=== PATIENT | male | born 1960 | race Caucasian/White ===

== ENCOUNTER 2022-10-19 11:00 | Inpatient (IN) | payer MEDICAID ==
[~2022-10-19] VITALS: Ht 177.8 cm; Wt 77.2 kg
[2022-12-10] MEDS ORDERED: LISI-894 PO (14:04)
[2022-12-10] MEDS ORDERED: NIFE-141 PO (14:04)
[2022-12-10] MEDS ORDERED: SERT-162 PO (14:04)
[2022-12-10] MEDS ORDERED: TAMS-13 PO (14:04)
[2022-12-10] MEDS ORDERED: GABA-1181 PO (14:04)
[2022-12-10] MEDS ORDERED: METO50 PO (14:04)
[2022-12-13] MEDS ORDERED: RINGERS SOLUTION,LACTATED 1,000 ML IV ONE ×4 (05:30→10:31)
[2022-12-13] MEDS ORDERED: CeFAZolin 2 GM/DEXTROSE 50 ML IV ONE ×2 (06:44→07:00)
[2022-12-13] MEDS ORDERED: ETHYL ALCOHOL 62% ANTISEPTIC NASAL SANITIZER 0.6 ML AMPUL NASAL ONE (07:00)
[2022-12-13] MEDS ORDERED: PHENYLEPHRINE 200 MG/D5%-WATER 250 ML IV PRN (08:15)
[2022-12-13] MEDS ORDERED: BUPIVACAINE HCL/PF 0.5% 30 ML VIAL ONE (08:24)
[2022-12-13] MEDS ORDERED: VANCOMYCIN HCL 1 GM/VIAL ONE ×2 (08:24)
[2022-12-13] MEDS ORDERED: BUPIVACAINE LIPOSOME/PF 1.3%-13.3MG/ML SUSPENSION 20 ML VIAL INJ ONE ×2 (08:30→12:16)
[2022-12-13 08:44] LABS: ABG BASE EXCESS -3.1 mmol/L (-2.0-3.0); ABG HCO3 22.2 mmol/L (22.0-26.0); ABG METHEMOGLOBIN 0.3 % (0.0-1.5); ABG OXYGEN CONTENT 15.7 mL/dL (15.0-23.0); ABG OXYGEN SATURATION 94.6 % (95.0-98.0); ABG OXYHEMOGLOBIN 88.6 % (94.0-100.0); ABG PCO2 37 mmHg (35-45); ABG PH 7.389 (7.35-7.450); ABG TOTAL HEMOGLOBIN 12.6 G/dL (12.0-18.0); PO2, ARTERIAL BG 71.1 mmHg (79.0-87.0); SOURCE, BLOOD GAS ARTERIAL; TEMPERATURE, FAHRENHEIT, BG 98.6 FAHREN (96.0-98.6)
[2022-12-13 08:45] LABS: ABG A-A DIFF O2 34.3 mmHg (10-20.0); O2 DEVICE,BLOOD GAS ROOM AIR (ROOM AIR); SITE, BLOOD GAS ARTERIAL LINE
[2022-12-13] MEDS ORDERED: HEPARIN SODIUM,PORCINE 5,000 UNITS/ML VIAL ONE (09:07)
[2022-12-13] MEDS ORDERED: BUPIVACAINE 0.25%/EPI 1:200,000/PF 10 ML VIAL ONE (09:53)
[2022-12-13] MEDS ORDERED: ACETAMINOPHEN 1000 MG/ISO-OSM 100 ML IV ONE (10:49)
[2022-12-13] MEDS ORDERED: ALBUTEROL SULFATE 2.5 MG/0.5 ML NEB SOLUTION NEB ONE ×2 (11:00→15:06)
[2022-12-13] MEDS ORDERED: GELATIN SPONGE,ABSORBABLE 100 MM TP ONE (11:46)
[2022-12-13] MEDS ORDERED: THROMBIN, BOVINE 20000 UNITS/VIAL POWDER TP ONE (11:47)
[2022-12-13] MEDS ORDERED: VANCOMYCIN HCL 1 GM/VIAL TP ONE (12:16)
[2022-12-13] MEDS ORDERED: RINGERS SOLUTION,LACTATED 2,000 ML IV ONE (13:45)
[2022-12-13] MEDS ORDERED: ONDANSETRON HCL 4 MG/2 ML VIAL IVP PRN (15:30)
[2022-12-13] MEDS ORDERED: ACETAMINOPHEN 325 MG TABLET PO PRN (15:30)
[2022-12-13] MEDS ORDERED: FentaNYL CITRATE PF 100 MCG/2 ML VIAL ONE (15:35)
[2022-12-13] MEDS: FentaNYL CITRATE PF 100 MCG/2 ML VIAL IVP PRN ×3 (15:36→16:03)
[2022-12-13] MEDS ORDERED: HYDROmorphone HCL 2 MG/ML SYRINGE ONE (15:54)
[2022-12-13] MEDS: HYDROmorphone HCL 2 MG/ML SYRINGE IVP PRN ×4 (15:55→16:28)
[2022-12-13] MEDS ORDERED: MORPHINE SULFATE 2 MG/ML SYRINGE IVP PRN (17:15)
[2022-12-13] MEDS ORDERED: OxyCODONE HCL/ACETAMINOPHEN 5-325 MG TABLET PO PRN (17:45)
[2022-12-13] MEDS ORDERED: HYDROmorphone HCL 2 MG/ML SYRINGE IVP PRN (18:45)
[2022-12-13] MEDS: MORPHINE SULFATE 2 MG/ML SYRINGE IVP PRN ×2 (19:26→23:37)
[2022-12-13] MEDS: DOCUSATE SODIUM 100 MG CAPSULE PO SCH (20:04)
[2022-12-13] MEDS: CYCLOBENZAPRINE HCL 10 MG TABLET PO SCH (20:05)
[2022-12-13] MEDS: OXYGEN THERAPY IH SCH (20:07)
[2022-12-14] VITALS: BP 170/93
[2022-12-14 04:00] VITALS: BP 185/96
[2022-12-14] MEDS: MORPHINE SULFATE 2 MG/ML SYRINGE IVP PRN ×4 (04:47→22:23)
[2022-12-14 05:59] LABS: BASOPHILS % (AUTO) 0.1 % (0.0-2.0); EOSINOPHILS % (AUTO) 0.1 % (1.0-6.0); HEMATOCRIT 29.4 % (41-53); HEMOGLOBIN 9.7 g/dL (13.5-17.5); LYMPHOCYTES # (AUTO) 1.5 K/uL (1.0-4.8); LYMPHOCYTES % (AUTO) 12.2 % (22.0-44.0); MEAN CORPUSCULAR HEMOGLOBIN 29.7 pg (26.0-34.0); MEAN CORPUSCULAR HGB CONC 33.1 G/dL (31.0-37.0); MEAN CORPUSCULAR VOLUME 90 fL (80-100); MONOCYTES # (AUTO) 1.2 K/uL (0.1-1.0); MONOCYTES % (AUTO) 9.1 % (2.0-9.0); NEUTROPHILS % (AUTO) 78.5 % (40.0-70.0); PLATELET COUNT (AUTO) 204 K/uL (150-450); RED BLOOD CELL COUNT(AUTO) 3.28 MIL/uL (4.50-5.90); RED CELL DISTRIBUTION WIDTH 13.7 % (11.5-14.5)
[2022-12-14 06:08] LABS: ALANINE AMINOTRANSFERASE 34 U/L (12-78); ALBUMIN 2.8 g/dL (3.4-5.0); ALKALINE PHOSPHATASE 68 U/L (46-116); ANION GAP 11 mmol/L (8-16); ASPARTATE AMINOTRANSFERASE 31 U/L (15-37); BILIRUBIN,TOTAL 0.4 mg/dL (0.1-1.0); CALCIUM, TOTAL 8.3 mg/dL (8.8-10.5); CARBON DIOXIDE 24 mmol/L (22-29); CHLORIDE 107 mmol/L (98-107); GLOMERULAR FILTR. RATE CALC > 60 mL/min (>60); GLUCOSE,RANDOM 106 mg/dL (70-110); POTASSIUM 3.4 mmol/L (3.5-5.1); SODIUM SERUM 142 mmol/L (136-145); TOTAL PROTEIN, SERUM 6.1 g/dL (6.4-8.2)
[2022-12-14] MEDS ORDERED: GLYCOPYRROLATE 0.2 MG/ML VIAL IM ONE (06:40)
[2022-12-14] MEDS ORDERED: EPINEPHrine 1:1,000 [1 MG/ML] VIAL IM ONE (06:40)
[2022-12-14] MEDS ORDERED: DEXAMETHASONE SOD PHOS 4 MG/ML VIAL IVP ONE (06:40)
[2022-12-14] MEDS ORDERED: ONDANSETRON HCL 4 MG/2 ML VIAL IVP ONE (06:40)
[2022-12-14] MEDS ORDERED: LIDOCAINE/PF 2% 5 ML VIAL IM ONE (06:40)
[2022-12-14] MEDS ORDERED: MIDAZOLAM HCL 2 MG/2 ML VIAL IVP ONE (06:40)
[2022-12-14] MEDS ORDERED: PROPOFOL 1% 20 ML VIAL IVP ONE (06:40)
[2022-12-14] MEDS ORDERED: EPHEDrine SULFATE 50 MG/ML VIAL IM ONE (06:40)
[2022-12-14] MEDS ORDERED: ROCURONIUM BROMIDE 10 MG/ML 5 ML VIAL IVP ONE (06:40)
[2022-12-14] MEDS ORDERED: NEOSTIGMINE METHYLSULFATE 1 MG/ML 10 ML VIAL IVP ONE (06:40)
[2022-12-14] MEDS ORDERED: FentaNYL CITRATE PF 100 MCG/2 ML VIAL IVP ONE (06:40)
[2022-12-14] MEDS ORDERED: POTASSIUM CHL 10 MEQ/WATER 50 ML IV PRN (06:45)
[2022-12-14 08:00] VITALS: BP 170/96
[2022-12-14] MEDS: OXYGEN THERAPY IH SCH ×2 (08:46→20:00)
[2022-12-14] MEDS: CYCLOBENZAPRINE HCL 10 MG TABLET PO SCH ×3 (08:56→20:05)
[2022-12-14] MEDS: METOPROLOL TARTRATE 50 MG TABLET PO SCH (08:57)
[2022-12-14] MEDS: FAMOTIDINE 20 MG TABLET PO SCH (08:57)
[2022-12-14] MEDS: TAMSULOSIN HCL 0.4 MG CAPSULE PO SCH (08:57)
[2022-12-14] MEDS: LISINOPRIL 20 MG TABLET PO SCH (08:57)
[2022-12-14] MEDS: GABAPENTIN 300 MG CAPSULE PO SCH ×4 (08:57→20:05)
[2022-12-14] MEDS: DOCUSATE SODIUM 100 MG CAPSULE PO SCH ×2 (09:05→20:05)
[2022-12-14] MEDS: SERTRALINE HCL 100 MG TABLET PO SCH (09:59)
[2022-12-14] MEDS: NIFEdipine 30 MG ER TABLET PO SCH (09:59)
[2022-12-14 12:00] VITALS: BP 174/107
[2022-12-14] MEDS: OxyCODONE HCL/ACETAMINOPHEN 10-325 MG TABLET PO PRN (14:03)
[2022-12-14 16:00] VITALS: BP 125/68
[2022-12-14] MEDS: POTASSIUM CHLORIDE 20 MEQ ER TABLET PO PRN (19:14)
[2022-12-14 22:20] VITALS: BP 149/81
[2022-12-15] VITALS (10 sets, daily range): BP systolic 111–167; BP diastolic 76–96
[2022-12-15] MEDS: OxyCODONE HCL/ACETAMINOPHEN 10-325 MG TABLET PO PRN (04:58)
[2022-12-15 05:43] LABS: APPEARANCE,URINE CLEAR (CLEAR); BILIRUBIN,URINE NEGATIVE (NEGATIVE); GLUCOSE, URINE (UA) NEGATIVE (NEGATIVE); KETONES,URINE NEGATIVE (NEGATIVE); LEUKOCYTE ESTERASE ,URINE NEGATIVE (NEGATIVE); NITRATE,URINE NEGATIVE (NEGATIVE); OCCULT BLOOD,URINE NEGATIVE (NEGATIVE); PH,URINE 7.5 (5.0-8.0); PROTEIN,URINE NEGATIVE (NEGATIVE); SPECIFIC GRAVITIY, URINE 1.012 (1.003-1.030); UROBILINOGEN,URINE <=1.0 mg/dL (<=1.0)
[2022-12-15] MEDS: OXYGEN THERAPY IH SCH ×2 (08:07→20:00)
[2022-12-15] MEDS: MORPHINE SULFATE 2 MG/ML SYRINGE IVP PRN ×4 (08:08→23:30)
[2022-12-15 08:24] LABS: ANION GAP 10 mmol/L (8-16); CALCIUM, TOTAL 8.7 mg/dL (8.8-10.5); CARBON DIOXIDE 24 mmol/L (22-29); CHLORIDE 108 mmol/L (98-107); CREATININE 0.66 mg/dL (0.60-1.30); GLOMERULAR FILTR. RATE CALC > 60 mL/min (>60); GLUCOSE,RANDOM 96 mg/dL (70-110); POTASSIUM 3.3 mmol/L (3.5-5.1); SODIUM SERUM 142 mmol/L (136-145)
[2022-12-15] MEDS: DOCUSATE SODIUM 100 MG CAPSULE PO SCH ×3 (08:58→21:00)
[2022-12-15] MEDS: LISINOPRIL 20 MG TABLET PO SCH (08:59)
[2022-12-15] MEDS: CYCLOBENZAPRINE HCL 10 MG TABLET PO SCH ×3 (08:59→20:37)
[2022-12-15] MEDS: TAMSULOSIN HCL 0.4 MG CAPSULE PO SCH (08:59)
[2022-12-15] MEDS: GABAPENTIN 300 MG CAPSULE PO SCH ×4 (09:00→20:36)
[2022-12-15] MEDS: SERTRALINE HCL 100 MG TABLET PO SCH (09:00)
[2022-12-15] MEDS: NIFEdipine 30 MG ER TABLET PO SCH (09:00)
[2022-12-15] MEDS: METOPROLOL TARTRATE 50 MG TABLET PO SCH (09:01)
[2022-12-15] MEDS: FAMOTIDINE 20 MG TABLET PO SCH (09:03)
[2022-12-15] MEDS: POTASSIUM CHLORIDE 20 MEQ ER TABLET PO PRN (09:45)
[2022-12-15 11:28] LABS: EOSINOPHILS % (AUTO) 0.3 % (1.0-6.0); HEMOGLOBIN 10.1 g/dL (13.5-17.5); LYMPHOCYTES # (AUTO) 1.6 K/uL (1.0-4.8); LYMPHOCYTES % (AUTO) 16.4 % (22.0-44.0); MEAN CORPUSCULAR HEMOGLOBIN 30.6 pg (26.0-34.0); MEAN CORPUSCULAR HGB CONC 33.8 G/dL (31.0-37.0); MEAN CORPUSCULAR VOLUME 91 fL (80-100); MONOCYTES % (AUTO) 9.7 % (2.0-9.0); NEUTROPHILS # (AUTO) 7.3 K/uL (1.8-7.7); NEUTROPHILS % (AUTO) 72.6 % (40.0-70.0); PLATELET COUNT (AUTO) 193 K/uL (150-450); RED BLOOD CELL COUNT(AUTO) 3.31 MIL/uL (4.50-5.90); RED CELL DISTRIBUTION WIDTH 13.9 % (11.5-14.5)
[2022-12-16 03:47] VITALS: BP 139/82
[2022-12-16] MEDS: MORPHINE SULFATE 2 MG/ML SYRINGE IVP PRN ×3 (05:14→15:47)
[2022-12-16 07:29] VITALS: BP 147/78
[2022-12-16] MEDS: OXYGEN THERAPY IH SCH ×2 (08:00→20:00)
[2022-12-16] MEDS: METOPROLOL TARTRATE 50 MG TABLET PO SCH (08:20)
[2022-12-16] MEDS: FAMOTIDINE 20 MG TABLET PO SCH (08:20)
[2022-12-16] MEDS: DOCUSATE SODIUM 100 MG CAPSULE PO SCH ×2 (08:20→20:12)
[2022-12-16] MEDS: TAMSULOSIN HCL 0.4 MG CAPSULE PO SCH (08:20)
[2022-12-16] MEDS: NIFEdipine 30 MG ER TABLET PO SCH (08:20)
[2022-12-16] MEDS: SERTRALINE HCL 100 MG TABLET PO SCH (08:21)
[2022-12-16] MEDS: GABAPENTIN 300 MG CAPSULE PO SCH ×4 (08:21→20:12)
[2022-12-16] MEDS: CYCLOBENZAPRINE HCL 10 MG TABLET PO SCH ×3 (08:22→20:12)
[2022-12-16] MEDS: LISINOPRIL 20 MG TABLET PO SCH (08:22)
[2022-12-16 10:45] LABS: ANION GAP 12 mmol/L (8-16); CALCIUM, TOTAL 8.5 mg/dL (8.8-10.5); CARBON DIOXIDE 21 mmol/L (22-29); CHLORIDE 106 mmol/L (98-107); CREATININE 0.66 mg/dL (0.60-1.30); GLOMERULAR FILTR. RATE CALC > 60 mL/min (>60); GLUCOSE,RANDOM 98 mg/dL (70-110); POTASSIUM 3.4 mmol/L (3.5-5.1); SODIUM SERUM 139 mmol/L (136-145)
[2022-12-16 11:11] VITALS: BP 127/86
[2022-12-16 15:23] VITALS: BP 128/73
[2022-12-16] MEDS ORDERED: MAGNESIUM SULFATE 2 GM/WATER 50 ML IV ONE (18:00)
[2022-12-16] MEDS: POTASSIUM CHLORIDE 20 MEQ ER TABLET PO PRN (18:07)
[2022-12-16] MEDS ORDERED: SODIUM CHLORIDE 0.9% 250 ML IV ONE (18:50)
[2022-12-16] MEDS: OxyCODONE HCL/ACETAMINOPHEN 10-325 MG TABLET PO PRN (20:16)
[2022-12-16 20:18] VITALS: BP 109/67
[2022-12-17] MEDS: MORPHINE SULFATE 2 MG/ML SYRINGE IVP PRN ×2 (00:04→11:02)
[2022-12-17 00:11] VITALS: BP 104/58
[2022-12-17 04:30] VITALS: BP 126/73
[2022-12-17] MEDS: OxyCODONE HCL/ACETAMINOPHEN 10-325 MG TABLET PO PRN ×2 (07:05→20:40)
[2022-12-17] MEDS: OXYGEN THERAPY IH SCH (07:56)
[2022-12-17] MEDS: DOCUSATE SODIUM 100 MG CAPSULE PO SCH ×2 (08:50→20:40)
[2022-12-17] MEDS: METOPROLOL TARTRATE 50 MG TABLET PO SCH (08:50)
[2022-12-17] MEDS: SERTRALINE HCL 100 MG TABLET PO SCH (08:51)
[2022-12-17] MEDS: LISINOPRIL 20 MG TABLET PO SCH (08:51)
[2022-12-17] MEDS: NIFEdipine 30 MG ER TABLET PO SCH (08:51)
[2022-12-17] MEDS: GABAPENTIN 300 MG CAPSULE PO SCH ×4 (08:51→20:40)
[2022-12-17] MEDS: FAMOTIDINE 20 MG TABLET PO SCH (08:51)
[2022-12-17] MEDS: CYCLOBENZAPRINE HCL 10 MG TABLET PO SCH ×3 (08:51→20:40)
[2022-12-17] MEDS: TAMSULOSIN HCL 0.4 MG CAPSULE PO SCH (08:52)
[2022-12-17 11:41] LABS: BASOPHILS % (AUTO) 0.4 % (0.0-2.0); EOSINOPHILS % (AUTO) 1.4 % (1.0-6.0); HEMATOCRIT 28.6 % (41-53); HEMOGLOBIN 9.7 g/dL (13.5-17.5); LYMPHOCYTES # (AUTO) 1.5 K/uL (1.0-4.8); MEAN CORPUSCULAR HEMOGLOBIN 30.4 pg (26.0-34.0); MEAN CORPUSCULAR HGB CONC 33.8 G/dL (31.0-37.0); MEAN CORPUSCULAR VOLUME 90 fL (80-100); MONOCYTES # (AUTO) 1.2 K/uL (0.1-1.0); MONOCYTES % (AUTO) 11.5 % (2.0-9.0); NEUTROPHILS # (AUTO) 7.7 K/uL (1.8-7.7); NEUTROPHILS % (AUTO) 72.7 % (40.0-70.0); PLATELET COUNT (AUTO) 214 K/uL (150-450); RED BLOOD CELL COUNT(AUTO) 3.17 MIL/uL (4.50-5.90); RED CELL DISTRIBUTION WIDTH 13.4 % (11.5-14.5)
[2022-12-17 11:51] LABS: ANION GAP 5 mmol/L (8-16); CALCIUM, TOTAL 8.4 mg/dL (8.8-10.5); CARBON DIOXIDE 25 mmol/L (22-29); CHLORIDE 104 mmol/L (98-107); CREATININE 0.69 mg/dL (0.60-1.30); GLOMERULAR FILTR. RATE CALC > 60 mL/min (>60); GLUCOSE,RANDOM 89 mg/dL (70-110); POTASSIUM 3.7 mmol/L (3.5-5.1); SODIUM SERUM 134 mmol/L (136-145)
[2022-12-17 11:57] LABS: ALANINE AMINOTRANSFERASE 34 U/L (12-78); ALBUMIN 2.5 g/dL (3.4-5.0); ALKALINE PHOSPHATASE 70 U/L (46-116); ASPARTATE AMINOTRANSFERASE 27 U/L (15-37); BILIRUBIN,TOTAL 0.6 mg/dL (0.1-1.0); TOTAL PROTEIN, SERUM 6.2 g/dL (6.4-8.2)
[2022-12-17 20:20] VITALS: BP 134/68
[2022-12-18] MEDS: MORPHINE SULFATE 2 MG/ML SYRINGE IVP PRN (01:28)
[2022-12-18 04:54] VITALS: BP 144/77
[2022-12-18] MEDS: OxyCODONE HCL/ACETAMINOPHEN 10-325 MG TABLET PO PRN ×2 (05:00→09:55)
[2022-12-18 06:46] LABS: BASOPHILS % (AUTO) 0.4 % (0.0-2.0); EOSINOPHILS % (AUTO) 1.4 % (1.0-6.0); HEMATOCRIT 29.1 % (41-53); HEMOGLOBIN 9.7 g/dL (13.5-17.5); LYMPHOCYTES # (AUTO) 1.6 K/uL (1.0-4.8); LYMPHOCYTES % (AUTO) 12.2 % (22.0-44.0); MEAN CORPUSCULAR HEMOGLOBIN 30.2 pg (26.0-34.0); MEAN CORPUSCULAR HGB CONC 33.5 G/dL (31.0-37.0); MEAN CORPUSCULAR VOLUME 90 fL (80-100); MONOCYTES # (AUTO) 1.4 K/uL (0.1-1.0); MONOCYTES % (AUTO) 10.5 % (2.0-9.0); NEUTROPHILS # (AUTO) 9.8 K/uL (1.8-7.7); NEUTROPHILS % (AUTO) 75.5 % (40.0-70.0); PLATELET COUNT (AUTO) 231 K/uL (150-450); RED BLOOD CELL COUNT(AUTO) 3.23 MIL/uL (4.50-5.90); RED CELL DISTRIBUTION WIDTH 13.6 % (11.5-14.5)
[2022-12-18 07:03] LABS: ALANINE AMINOTRANSFERASE 34 U/L (12-78); ALBUMIN 2.7 g/dL (3.4-5.0); ALKALINE PHOSPHATASE 71 U/L (46-116); ANION GAP 8 mmol/L (8-16); ASPARTATE AMINOTRANSFERASE 28 U/L (15-37); BILIRUBIN,TOTAL 0.7 mg/dL (0.1-1.0); CALCIUM, TOTAL 8.9 mg/dL (8.8-10.5); CARBON DIOXIDE 24 mmol/L (22-29); CHLORIDE 104 mmol/L (98-107); CREATININE 0.78 mg/dL (0.60-1.30); GLOMERULAR FILTR. RATE CALC > 60 mL/min (>60); GLUCOSE,RANDOM 101 mg/dL (70-110); POTASSIUM 3.7 mmol/L (3.5-5.1); SODIUM SERUM 136 mmol/L (136-145); TOTAL PROTEIN, SERUM 6.8 g/dL (6.4-8.2)
[2022-12-18 07:53] VITALS: BP 140/78
[2022-12-18] MEDS: OXYGEN THERAPY IH SCH (08:00)
[2022-12-18] MEDS: CYCLOBENZAPRINE HCL 10 MG TABLET PO SCH (08:44)
[2022-12-18] MEDS: SERTRALINE HCL 100 MG TABLET PO SCH (08:45)
[2022-12-18] MEDS: TAMSULOSIN HCL 0.4 MG CAPSULE PO SCH (08:45)
[2022-12-18] MEDS: NIFEdipine 30 MG ER TABLET PO SCH (08:45)
[2022-12-18] MEDS: METOPROLOL TARTRATE 50 MG TABLET PO SCH (08:45)
[2022-12-18] MEDS: FAMOTIDINE 20 MG TABLET PO SCH (08:45)
[2022-12-18] MEDS: DOCUSATE SODIUM 100 MG CAPSULE PO SCH (08:45)
[2022-12-18] MEDS: GABAPENTIN 300 MG CAPSULE PO SCH (08:45)
[2022-12-18] MEDS: LISINOPRIL 20 MG TABLET PO SCH (09:00)
[2022-12-18] MEDS ORDERED: CYCL-448 PO (09:39)
[2022-12-18] MEDS ORDERED: DOCU-385 PO (09:39)
[2022-12-18] MEDS ORDERED: FAMO20 PO (09:40)
[2022-12-18] MEDS ORDERED: ACET-2247 PO (09:40)
[2022-12-18] MEDS ORDERED: OXYC-490 PO (09:42)
== END 2022-12-18 10:15 | DRG 23 ==
LOC: 6S 12-13 06:43 → ICU 12-13 16:41 → 5S 12-15 12:50 → 6S 12-17 20:00
PROVIDERS: ADMIT Neurological Surgery; ATTEND Hospitalist
PROC: 0RG4071 Fusion of Cervicothoracic Vertebral Joint with Autologous Tissue Substitute, Posterior Approach, Posterior Column, Open Approach (ICD-10-PCS; 2022-12-13)
PROC: 4A11X4G Monitoring of Peripheral Nervous Electrical Activity, Intraoperative, External Approach (ICD-10-PCS; 2022-12-13)
PROC: 0RG2071 Fusion of 2 or more Cervical Vertebral Joints with Autologous Tissue Substitute, Posterior Approach, Posterior Column, Open Approach (ICD-10-PCS; principal; 2022-12-13 08:50)
DX: M54.12 Radiculopathy, cervical region (principal); D64.9 Anemia, unspecified; M19.90 Unspecified osteoarthritis, unspecified site; D72.829 Elevated white blood cell count, unspecified; I10 Essential (primary) hypertension; E87.6 Hypokalemia; E78.00 Pure hypercholesterolemia, unspecified; Z79.899 Other long term (current) drug therapy
CPT/HCPCS: 72125; 80048; 80053; 81003; 82805; 83735; 84132; 85025; 86850; 86900; 86901; 87081; 97116; 97162; 97167; 97530; 97535; C9290; G0378; J0131; J0171; J0690; J1100; J1170; J1644; J2250; J2270; J2370; J2405; J2704; J3010; J3370; J3475; J3490; J7050; J7120; Q9967